=== PATIENT | male | born 1975 | race Caucasian/White ===

== ENCOUNTER 2022-01-23 08:18 | Outpatient (REF) | payer OTHER, SELFPAY ==
--- NOTE | 2022-01-23 12:51 | MHC.AU.AEV ---
Adult Audiological Evaluation Date of Visit: 01/23/22 Stone Splitter Used: ASL- In Person Reason for Appointment: Patient has congenital hearing loss. His preferred method of communication is ASL. He does not currently use hearing aids, but has worn them in the past. 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 Medical History: Frequent ear infections and middle ear problems in childhood- had 5 sets of PE tubes Otoscopy: Right Ear: Scarring noted on tympanic membrane Left Ear: Unremarkable Tympanometry: Tympanometry performed due to: History of middle ear dysfunction Right Ear: Normal Middle Ear System (Type A) Left Ear: Normal Middle Ear System (Type A) Hearing Evaluation: Transducer(s) Used: Insert Earphones Method: Conventional Audiometry Stimuli Used: Pure Tones Right Ear: Description of Hearing: Severe to profound sensorineural hearing loss Left Ear: Description of Hearing: Severe to profound sensorineural hearing loss Word Discrimination: Method: Monitored Live Voice Word Lists Used: W-22 Right Ear: 20% at 105 dBHL Left Ear: 0% at 105 dBHL Recommendations: Audiological re-evaluation if changes are noted. Patient is not interested in hearing aids at this time. Diagnosis: Primary Diagnosis: H90.3 Bilateral Sensorineural Hearing Loss Signature: Provider: Reyes Quezada, [facility]
== END 2022-01-23 08:19 | disposition home or self-care (01) ==
LOC: HO.SH 08:18
PROVIDERS: Visit Provider Family Medicine
DX: Z01.118 Encounter for examination of ears and hearing with other abnormal findings (principal); H90.3 Sensorineural hearing loss, bilateral
CPT/HCPCS: 92553; 92567